=== PATIENT | male | born 1990 | race Caucasian/White ===

== ENCOUNTER 2019-03-04 06:05 | Inpatient (IN) | payer OTHER ==
[2019-03-04] MEDS ORDERED: NACL 0.9% 3 ML SYG IV SCH (09:00)
[2019-03-04] MEDS ORDERED: ONDANSETRON 4 MG INJ IV PRN (09:00)
[2019-03-04] MEDS: SOD CHLORIDE 0.9% 1,000 ML IV SCH ×3 (09:35→21:09)
[2019-03-04 10:33] VITALS: BP 129/78; PULSE 85; RESP 19
[2019-03-04] MEDS: morphine 2 MG INJ IV PRN ×3 (12:05→22:59)
[2019-03-04 15:45] VITALS: BP 121/72; PULSE 74; RESP 19
[2019-03-04 19:49] VITALS: BP 120/64; PULSE 120; PULSE 69; RESP 18
[2019-03-05] MEDS ORDERED: HYDROmorphONE 0.5 MG/0.5 ML SYG IV PRN (00:30)
[2019-03-05 02:08] VITALS: BP 108/66; PULSE 74; RESP 18
[2019-03-05] MEDS: SOD CHLORIDE 0.9% 1,000 ML IV SCH (05:56)
[2019-03-05 07:49] VITALS: BP 117/69; PULSE 73; RESP 18
[2019-03-05] MEDS: traMADol 50 MG TAB PO PRN ×2 (09:33→15:20)
[2019-03-05 15:47] VITALS: BP 112/71; PULSE 69; RESP 18
[2019-03-05 15:50] VITALS: BP 97/56; PULSE 94; RESP 18
== END 2019-03-05 16:02 | disposition home or self-care (01) | DRG 446 ==
LOC: MS1 07:45
PROVIDERS: ADMIT Family Medicine; ATTEND Family Medicine
DX: K80.20 Calculus of gallbladder without cholecystitis without obstruction (principal); R74.0 Nonspecific elevation of levels of transaminase and lactic acid dehydrogenase [LDH]; E66.9 Obesity, unspecified; K86.9 Disease of pancreas, unspecified
CPT/HCPCS: 74181; 80053; 80061; 81003; 82150; 82390; 83036; 83690; 83735; 84100; 84439; 84443; 85025; 85610; 85730; 86704; 86706; 86708; 86803; 87340; J2270; J7030